=== PATIENT | female | born 1980 | race Caucasian/White ===

== ENCOUNTER → 2017-01-09 | Outpatient (CLI) | payer OTHER | LOC: HHS 12:07 | DX: Z12.31 Encounter for screening mammogram for malignant neoplasm of breast (principal) ==

== ENCOUNTER 2017-11-21 17:04 | Emergency (ER) | payer OTHER ==
[2017-11-21 17:09] VITALS: BP 123/75
[2017-11-21] MEDS ORDERED: IBUPROFEN 800 MG TABLET PO ONE (17:29)
[2017-11-21] MEDS ORDERED: LIDOCAINE 5% (700 MG) TRANSDERMAL ADH..PATCH TP ONE (17:29)
--- NOTE | 2017-11-21 17:31 | ER Document Report ---
HPI - HPI Patient complains to provider of: Left upper shoulder and back pain Onset: Other - 3 days ago Onset/Duration: Persistent Quality of pain: Achy Pain Level: 4 Context: Patient states she was attempting to pull a freezer door open that was stuck. Patient states she repeatedly pulled on it and developed left shoulder and upper back pain 3 days ago. Patient denies any other injuries. Associated Symptoms: Other - Left shoulder upper back pain Exacerbated by: Movement Relieved by: Denies Similar symptoms previously: No Recently seen / treated by doctor: No - ROS ROS below otherwise negative: Yes Systems Reviewed and Negative: Yes All other systems reviewed and negative - CONSTITUTIONAL Constitutional: DENIES: Fever - NEURO Neurology: DENIES: Weakness - CARDIOVASCULAR Cardiovascular: DENIES: Chest pain - GASTROINTESTINAL Gastrointestinal: DENIES: Nausea - MUSCULOSKELETAL Musculoskeletal: REPORTS: Extremity pain, Back Pain - DERM Skin Color: Normal Skin Problems: None Past Medical History - General Information source: Patient - Social History Smoking Status: Current Every Day Smoker Smoking Education Provided: Yes Frequency of alcohol use: None Drug Abuse: None 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 IN LAST 30 DAYS: No - HEENT HEENT: Atraumatic, Normocephalic - NECK Neck: Normal Inspection, Supple. negative: Lymphadenopathy-Left, Lymphadenopathy-Right Notes: no midline tenderness, step off or deformity - RESPIRATORY Respiratory: Breath Sounds Normal, No Respiratory Distress - CARDIOVASCULAR Cardiovascular: Regular Rate, Regular Rhythm Pulses: Normal: Radial - BACK Back: Abnormal Inspection - left trapezius muscle tenderness, worse with ROM to LUE - MUSCULOSKELETAL/EXTREMETIES Musculoskeletal/Extremeties: MAEW, FROM - NEURO Level of Consciousness: Awake, Alert, Appropriate Motor/Sensory: No Motor Deficit - DERM Integumentary: Warm, Dry Course - Vital Signs Vital signs: Temp Pulse Resp BP Pulse Ox 97.9 F 97 16 123/75 100 11/21/17 17:07 11/21/17 17:07 11/21/17 17:07 11/21/17 17:07 11/21/17 17:07 Procedures - Immobilization Left Shoulder Pre-Proc Neuro Vasc Exam: Normal Immobilizer type: Sling Performed by: PCT Post-Proc Neuro Vasc Exam: Normal Alignment checked and good: Yes Discharge - Discharge Clinical Impression: Strain of left trapezius muscle Qualifiers: Encounter type: initial encounter Qualified Code(s): S46.812A - Strain of other muscles, fascia and tendons at shoulder and upper arm level, left arm, initial encounter Sprain of left shoulder Qualifiers: Encounter type: initial encounter Shoulder sprain type: unspecified sprain Qualified Code(s): S43.402A - Unspecified sprain of left shoulder joint, initial encounter Condition: Stable Disposition: HOME, SELF-CARE Instructions: Muscle Relaxers ([facility]), Muscle Strain ([facility]), Shoulder Injury ([facility]) , Sling as Treatment ([facility]) Additional Instructions: Return immediately for any new or worsening symptoms Followup with your primary care provider, call tomorrow to make a followup appointment Where sling for the next 4 days while awake only and then remove. If still having pain follow-up with orthopedics for further evaluation Prescriptions: Cyclobenzaprine HCl [Flexeril 10 Mg Tablet] 10 mg PO TID #15 tablet Naproxen [Naprosyn 250 Nmg Tablet] 1 tab PO BID #14 tablet Forms: Smoking Cessation Education, Return to Work Referrals: [facility] [Provider Group] - Follow up as needed
== END 2017-11-21 18:05 | disposition home or self-care (01) ==
LOC: ER 17:04
DX: S43.402A Unspecified sprain of left shoulder joint, initial encounter (principal); S29.012A Strain of muscle and tendon of back wall of thorax, initial encounter; M25.512 Pain in left shoulder; M54.89 Other dorsalgia; X50.3XXA Overexertion from repetitive movements, initial encounter; Y99.0 Civilian activity done for income or pay; F17.200 Nicotine dependence, unspecified, uncomplicated
CPT/HCPCS: 99283

== ENCOUNTER 2017-12-19 13:15 | Emergency (ER) | payer OTHER ==
[2017-12-19] MEDS ORDERED: METOCLOPRAMIDE HCL INJ/PF 10 MG/2 ML SDV IV ONE (13:37)
[2017-12-19] MEDS ORDERED: NORMAL SALINE 1000 ML 1,000 ML IV ONE (13:37)
[2017-12-19] MEDS ORDERED: DIPHENHYDRAMINE HCL 50 MG/ML VIAL IV ONE (13:38)
--- NOTE | 2017-12-19 13:39 | ER Document Report ---
ED Medical Screen (RME) - General Chief Complaint: Nausea/Vomiting Stated Complaint: VOMITING/HEADACHE Time Seen by Provider: 12/19/17 13:36 Mode of Arrival: Ambulatory Information source: Patient Notes: This is a 37-year-old female presents to the emergency room with nausea, vomiting, headache. Patient does states she drank excessively last night. Her symptoms came on slowly after waking this morning. She denies fever, chills. Her only antibiotics of cephalexin which she was put on by the urgent care for mild erythema to the right foot. She is allergic to codeine. TRAVEL OUTSIDE OF THE [place] IN LAST 30 DAYS: No - HPI Onset: This morning Onset/Duration: Gradual Quality of pain: Dull Severity: Mild Pain Level: 1 Associated Symptoms: Nausea, Vomiting. denies: Chest pain, Shortness of breath Exacerbated by: Denies Relieved by: Denies Similar symptoms previously: No Recently seen / treated by doctor: No - Related Data Smoking: Non-smoker Frequency of alcohol use: As above Drug Abuse: None Allergies/Adverse Reactions: codeine [Codeine] Adverse Reaction (Verified 12/19/17 13:21) Urticaria Past Medical History - General Information source: Patient - Social History Cigarette use (# per day): No Chew tobacco use (# tins/day): No Frequency of alcohol use: Social Drug Abuse: None Lives with: Family Family history: None - Past Medical History Cardiac Medical History: Reports: None Pulmonary Medical History: Reports: None EENT Medical History: Reports: None Endocrine Medical History: Reports: Hx Diabetes Mellitus Type 2 Renal/ Medical History: Reports: None. Denies: Hx Peritoneal Dialysis Malignancy Medical History: Reports: None GI Medical History: Reports: None Psychiatric Medical History: Reports: Hx Anxiety Traumatic Medical History: Reports: None Infectious Medical History: Reports: None Past Surgical History: Reports: Hx Section Review of Systems - Review of Systems Constitutional: denies: Chills, Fever EENT: No symptoms reported Cardiovascular: No symptoms reported Respiratory: No symptoms reported Gastrointestinal: See HPI Genitourinary: No symptoms reported Female Genitourinary: No symptoms reported Musculoskeletal: No symptoms reported Skin: No symptoms reported Hematologic/Lymphatic: No symptoms reported Neurological/Psychological: See HPI Physical Exam - Vital signs Vitals: Temp Pulse Resp BP Pulse Ox 98.3 F 82 16 116/66 99 12/19/17 13:28 09/30/18 13:28 12/19/17 13:28 12/19/17 13:28 12/19/17 13:28 Notes: Physical exam: GENERAL: 37-year-old female, alert and oriented x3. She is complaining of nausea , vomiting and headache at this time. HEAD: Atraumatic, normocephalic. EYES: Pupils equal round and reactive to light, extraocular movements intact, sclera anicteric, conjunctiva are normal. ENT: TMs normal, nares patent, oropharynx clear without exudates. Moist mucous membranes. NECK: Normal range of motion, supple without obvious mass or JVD. LUNGS: Breath sounds clear to auscultation bilaterally and equal. No wheezes rales or rhonchi. HEART: Regular rate and rhythm without murmurs, rubs or gallops. ABDOMEN: Soft, normoactive bowel sounds. No tenderness to palpation. No guarding, no rebound. No masses appreciated. EXTREMITIES: Normal range of motion, no pitting or edema. No clubbing or cyanosis. NEUROLOGICAL: Cranial nerves II through XII grossly intact. Normal speech, moving all extremities. PSYCH: Normal mood, normal affect. SKIN: Warm, Dry, normal turgor, no rashes or lesions noted. Course - Re-evaluation Re-evalutation: 12/19/17 15:53 Patient was treated with IV fluids, IV Reglan. On reassessment, the patient states she is feeling much better and is ready to go. She states she requires no further treatment. - Vital Signs Vital signs: Temp Pulse Resp BP Pulse Ox 98.3 F 84 18 120/84 100 12/19/17 13:28 12/19/17 15:50 12/19/17 15:50 12/19/17 15:50 12/19/17 15:50 - Laboratory Result Diagrams: 12/19/17 14:08 12/19/17 14:08 Laboratory results interpreted by me: 12/19/17 14:08 Seg Neutrophils % 82.4 H Lymphocytes % 11.6 L Doctor's Discharge - Discharge Clinical Impression: Vomiting with nausea, Headache Condition: Stable Disposition: HOME, SELF-CARE Additional Instructions: Recommendations: Rest, drink plenty of fluids, take Tylenol for pain. Take Zofran if needed for any further nausea. Return to the emergency room for worsening headache, fever (temperature greater than 100.5), not tolerating fluids or any concerns or getting worse.
[2017-12-19 14:23] LABS: ABSOLUTE LYMPHOCYTES (AUTO) 0.8 10^3/uL (0.5-4.7); ABSOLUTE MONOCYTES (AUTO) 0.3 10^3/uL (0.1-1.4); ABSOLUTE NEUT (AUTO) 5.4 10^3/uL (1.7-8.2); BASOPHILS % (AUTO) 0.4 % (0-2); EOSINOPHILS % (AUTO) 0.3 % (0-6); HEMATOCRIT 40.9 % (36.0-47.0); HEMOGLOBIN 13.9 g/dL (12.0-15.5); LYMPHOCYTES % (AUTO) 11.6 % (13-45); MEAN CORPUSCULAR HEMOGLOBIN 30.4 pg (27.0-33.4); MEAN CORPUSCULAR VOLUME 90 fl (80-97); MONOCYTES % (AUTO) 5.3 % (3-13); PLATELET COUNT 201 10^3/uL (150-450); RED BLOOD COUNT 4.57 10^6/uL (3.72-5.28); RED CELL DISTRIBUTION WIDTH 13.7 % (11.5-14.0); SEGMENTED NEUTROPHILS % (AUTO) 82.4 % (42-78); TOTAL CELLS COUNTED % (AUTO) 100 %; WHITE BLOOD COUNT 6.5 10^3/uL (4.0-10.5)
[2017-12-19 14:43] LABS: ALANINE AMINOTRANSFERASE 36 U/L (9-52); ALBUMIN 4.2 g/dL (3.5-5.0); ALKALINE PHOSPHATASE 59 U/L (38-126); ANION GAP 6 (5-19); ASPARTATE AMINO TRANSFERASE 35 U/L (14-36); BILIRUBIN,DIRECT 0.4 mg/dL (0.0-0.4); BILIRUBIN,TOTAL 0.8 mg/dL (0.2-1.3); BLOOD UREA NITROGEN 13 mg/dL (7-20); CALCIUM 9.3 mg/dL (8.4-10.2); CARBON DIOXIDE 30 mmol/L (22-30); CHLORIDE 105 mmol/L (98-107); GLUCOSE 104 mg/dL (75-110); POTASSIUM 4.7 mmol/L (3.6-5.0); SODIUM 140.6 mmol/L (137-145); TOTAL PROTEIN 6.8 g/dL (6.3-8.2)
[2017-12-19] MEDS ORDERED: ONDANSETRON ODT 4 MG TAB (6 TAB/ER DISP) PO PRN (15:36)
[2017-12-19 15:55] VITALS: BP 120/84
== END 2017-12-19 15:51 | disposition home or self-care (01) ==
LOC: ER 13:15
DX: R11.2 Nausea with vomiting, unspecified (principal); R51 Headache; L53.9 Erythematous condition, unspecified; E11.9 Type 2 diabetes mellitus without complications; Z88.5 Allergy status to narcotic agent
CPT/HCPCS: 99284; 96361; 96374; 36415; 84702; 85025; 80053; J2765

== ENCOUNTER 2018-08-19 20:52 | Emergency (ER) | payer OTHER ==
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
[2018-08-20] MEDS ORDERED: IBUPROFEN 800 MG TABLET PO ONE (00:40)
[2018-08-20] MEDS ORDERED: DIAZEPAM 5 MG TABLET PO ONE (00:40)
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
[2018-08-20 01:06] VITALS: BP 108/67
== END 2018-08-20 01:06 | disposition home or self-care (01) ==
LOC: ER 20:52
DX: S16.1XXA Strain of muscle, fascia and tendon at neck level, initial encounter (principal); M54.2 Cervicalgia; R51 Headache; M25.519 Pain in unspecified shoulder; M79.605 Pain in left leg; V49.40XA Driver injured in collision with unspecified motor vehicles in traffic accident, initial encounter; F41.9 Anxiety disorder, unspecified; F17.210 Nicotine dependence, cigarettes, uncomplicated
CPT/HCPCS: 70450; 72125; 99284